=== PATIENT | female | born 1960 ===

== ENCOUNTER 2022-05-29 08:59 | Outpatient (CLI) | payer OTHER, SELFPAY ==
--- NOTE | 2022-05-29 08:45 | RT.EKG_ITS ---
APPROVED REPORT Exam: Resting ECG Reason for Exam: palpitations Patient Location: O HR:70 bpm ECG Measurements Heart Rate 70 AXIS [place] 164 P 73 QRSd 110 QRS -29 QT 379 T 69 QTc 409 Conclusion Sinus rhythm...normal P axis, V-rate 50- 99 Borderline left axis deviation...QRS axis (-15,-29) RSR' in V1 or V2, probably normal variant...small R' only
== END 2022-05-29 09:00 | disposition home or self-care (01) ==
LOC: DI.CARD 09:00
PROVIDERS: Visit Provider Internal Medicine Cardiovascular Disease
DX: R00.2 Palpitations (principal); R55 Syncope and collapse
CPT/HCPCS: 93010